=== PATIENT | female | born 1970 | race African-American/Black ===

== ENCOUNTER 2022-02-04 11:13 | Outpatient (CLI) | payer MEDICARE, OTHER | END 2022-02-04 11:14 | disposition home or self-care (01) | LOC: CSHMRI 11:13 | PROVIDERS: ATTEND Orthopaedic Surgery | DX: M24.811 Other specific joint derangements of right shoulder, not elsewhere classified (principal) ==

== ENCOUNTER 2023-12-20 16:14 | Emergency (ER) | payer MEDICARE, OTHER | END 2023-12-20 18:12 | disposition home or self-care (01) | LOC: CSHERS 16:14 | DX: R19.7 Diarrhea, unspecified (principal); E11.9 Type 2 diabetes mellitus without complications; I10 Essential (primary) hypertension | CPT/HCPCS: 80053; 83690; 85025; 99284 ==

== ENCOUNTER 2024-02-29 08:03 | Outpatient (CLI) | payer OTHER | END 2024-02-29 08:04 | disposition home or self-care (01) | LOC: CSHMRI 08:03 | PROVIDERS: ATTEND Orthopaedic Surgery | DX: M75.101 Unspecified rotator cuff tear or rupture of right shoulder, not specified as traumatic (principal); M75.81 Other shoulder lesions, right shoulder; M75.91 Shoulder lesion, unspecified, right shoulder; M65.811 Other synovitis and tenosynovitis, right shoulder; M19.011 Primary osteoarthritis, right shoulder ==